=== PATIENT | female | born 1995 | race Caucasian/White ===

== ENCOUNTER 2018-07-19 14:16 | Observation (INO) ==
[2018-07-19 15:23] LABS: Amphetamine Screen,Urine Negative ng/mL (Cutoff=1000); Barbiturate Screen,Urine Negative ng/mL (Cutoff=200); Benzodiazepines Screen,Urine Negative ng/mL (Cutoff=200); Cannabinoid Screen,Urine Negative ng/mL (Cutoff = 50); Cocaine Screen,Urine Negative ng/mL (Cutoff= 300); Opiate Screen,Urine Negative ng/mL (Cutoff=300); Phencyclidine Screen,Urine Negative ng/mL (Cutoff=25)
--- NOTE | 2018-07-19 16:31 | Discharge Summary ---
Date of Encounter: 07/19/18 Time of Encounter: 16:30 - Discharge Diagnosis (1) 38 weeks gestation of Priority: Primary Status: Acute Comments: admitted for observation false labor (2) NST (non-stress test) reactive on surveillance Priority: Secondary Status: Acute Comments: FHR baseline 130 bpm moderate variability +15x15 accels no decels noted. Cat. 1 tracing - Discharge Medications Allergies/Adverse Reactions: 3 Allergy/AdvReac Type Severity Reaction Status Date / Time cephalexin Allergy Dizziness Verified 07/19/18 14:36 Data Procedures and tests throughout hospitalization: Laboratory Tests 07/19/18 14:23 Urine Opiates Screen Negative Ur Barbiturates Screen Negative Ur Phencyclidine Scrn Negative Ur Amphetamines Screen Negative U Benzodiazepines Scrn Negative Urine Cocaine Screen Negative U Marijuana (THC) Screen Negative Ur Drug Screen Interp See Below Labs on day of discharge: Labs from last 24 hours 07/19/18 14:23 Urine Opiates Screen Negative Ur Barbiturates Screen Negative Ur Phencyclidine Scrn Negative Ur Amphetamines Screen Negative U Benzodiazepines Scrn Negative Urine Cocaine Screen Negative U Marijuana (THC) Screen Negative Ur Drug Screen Interp See Below Date of admission: 07/19/18 14:16 Primary care physician: PCP NONE Discharging clinician: Nettie Machuca Anticipated date of discharge: 07/19/18 - Patient Status Disposition: Home, Self-Care Condition: Good Functional capacity at discharge: independent ambulation - Discharge Instructions Follow Up With: NONE,PCP [Primary Care Provider] - Manas Lowe DO [Partnered Physician] - - Diet and Activity Activity: increase activity as tolerated Diet: regular diet Hospital Course J[employer]ESE [employer]OR Hospital course: Patient is a 22 y/o at 38w1d presented to labor and delivery with complaints of contractions. Patient reports +FM. Denies LOF or VB. Time Attestation: Total time spent providing and/or coordinating discharge services: Time Spent: Less than 30 minutes Exam - Constitutional General appearance IM: A&O X 3, pleasant, answers questions appropriately - Respiratory Respiratory exam: Present: CTAB - Cardiovascular Cardiovascular exam IM: Present: RRR, +S1, +S2 - Uterus Position: At Umbilicus, Midline - Extremities Exam Extremities exam IM: Present: full ROM, normal capillary refill, normal inspection - Neurological Exam Neurological exam: alert, oriented X3, reflexes normal - VTE Reasons for not Prescribing Prophylaxis: Treatment not Indicated - Low risk for VTE
== END 2018-07-19 16:40 | disposition home or self-care (01) ==
LOC: 1NENULAB
PROVIDERS: ADMIT Advanced Practice Midwife; ATTEND Advanced Practice Midwife

== ENCOUNTER 2018-07-22 09:05 | Inpatient (IN) ==
[2018-07-22 10:17] LABS: Amphetamine Screen,Urine Negative ng/mL (Cutoff=1000); Barbiturate Screen,Urine Negative ng/mL (Cutoff=200); Benzodiazepines Screen,Urine Negative ng/mL (Cutoff=300); Cannabinoid Screen,Urine Negative ng/mL (Cutoff = 50); Cocaine Screen,Urine Negative ng/mL (Cutoff= 300)
[2018-07-22 10:18] LABS: Opiate Screen,Urine Negative ng/mL (Cutoff=300); Phencyclidine Screen,Urine Negative ng/mL (Cutoff=25)
[2018-07-22] MEDS ORDERED: Lidocaine 1% 20 ML MDV INFILT PRN (10:52)
[2018-07-22] MEDS ORDERED: *HR* Nalbuphine 10 MG/ML AMPUL IVP PRN (10:52)
[2018-07-22] MEDS ORDERED: Famotidine 20 MG/2 ML VIAL IVP PRN (10:52)
[2018-07-22] MEDS ORDERED: Ondansetron 4 MG/2 ML VIAL IVP PRN ×2 (10:52→17:55)
[2018-07-22] MEDS ORDERED: Metoclopramide 10 MG/2 ML VIAL IVP PRN (10:52)
[2018-07-22] MEDS ORDERED: Naloxone 0.4 MG/ML INJ IVP PRN ×2 (10:52→17:55)
[2018-07-22] MEDS ORDERED: miSOPROStol 25 MCG TABLET PO PRN (10:55)
[2018-07-22] MEDS ORDERED: Ringers Solution, Lactated 1,000 ML IVC SCH (11:00)
[2018-07-22 11:41] LABS: Basophils % 0.4 %; Eosinophils # 0.1 K/mcL (0.0-0.6); Eosinophils % 1.4 %; Hematocrit 34.1 % (35.3-44.9); Hemoglobin 10.9 g/dL (11.5-15.4); Immature Granulocytes % 0.5 % (0-4); Lymphocytes # 1.2 K/mcL (0.6-4.6); Lymphocytes % 15.2 %; Mean Corpuscular Hemoglobin 28.4 pg (28.0-33.3); Mean Corpuscular Volume 88.8 fL (83.0-100.0); Monocytes # 0.6 K/mcL (0.0-1.3); Neutrophils # 6.1 K/mcL (1.6-8.9); Platelet Count 169 K/mcL (140-400); Red Blood Count 3.84 M/mcL (3.82-4.97); Red Cell Distribution Width 14.5 % (11.5-14.5); Segmented Neutrophils % 75.5 %
--- NOTE | 2018-07-22 11:52 | OB/GYN History & Physical ---
Date of Encounter: 07/22/18 Time of Encounter: 11:52 Assessment and Plan (1) SROM (spontaneous rupture of membranes) Current visit: Yes Status: Acute Admit to labor and delivery Nubain and epidural as desired Cytotec 50 g by mouth Anticipate (2) 38 weeks gestation of Current visit: No Status: Acute History of Present Illness Chief complaint: Leaking of fluid HPI: Ms. Fishman is a 22 year old female 38+4 weeks gestation presents to triage with complaints of leaking of fluid. Patient states she had a gush of fluid yesterday approximately 1 PM, and had some contractions overnight but no further contractions or leaking overnight. Then had a very large gush of fluid this morning at 5 AM, reports good movement, denies vaginal bleeding. care with Dr. Lowe, complicated by homogenous MTHFR, and anemia, otherwise uncomplicated course. Past Med Surg Social Fam HX - Past Medical History Medical history: asthma Additional medical history: "blood thickening disorder" Psychiatric history: anxiety - Past Surgical History Additional surgical history: [place] teeth - Social History Smoking Status: Never smoker Smokeless Tobacco Status: No Alcohol use: none Drug use: none - Family History Mother History Unknown: Yes Living Status: Still Living Hx Family Cardiac Disorders: Yes Hx Family Medical Disorders: Yes (stroke, DVT) Obstetrical History - Pregnancies : 1 Para: 0 Term: 0 : 0 Ab's: 0 Livin Medications and Allergies Ferrous Sulfate [Iron] 325 mg PO 07/22/18 [History] Vits96/Iron Fum/Folic [ Tablet] 1 each PO 07/22/18 [History] 3 Allergy/AdvReac Type Severity Reaction Status Date / Time cephalexin Allergy Dizziness Verified 07/19/18 14:36 Exam - Constitutional Constitutional: well developed, well nourished, no acute distress, average body habitus - Neck Neck exam: full ROM - Lungs Respiratory exam: CTAB - Cardiovascular Cardiovascular exam: RRR - Abdomen Abdomen: Present: gravid, non tender - Extremities Extremities exam: normal capillary refill, normal inspection Results All other labs normal. - VTE Reasons for not Prescribing Prophylaxis: Treatment not Indicated - Low risk for VTE
[2018-07-22] MEDS: Clindamycin 900 MG/50 ML 900 MG/50 ML IV.SOLN IVPB SCH ×2 (15:09→23:40)
[2018-07-22] MEDS ORDERED: *HR* FentaNYL (PF) 100 MCG/2 ML VIAL EP ONE (17:55)
[2018-07-22] MEDS ORDERED: Bupivacaine-MPF 0.25% 10 ML VIAL EP ONE (17:55)
[2018-07-22] MEDS ORDERED: *HR* Ropivacaine/PF 0.2% 20 ML VIAL EP ONE (17:55)
[2018-07-22] MEDS ORDERED: EPHEDrine 50 MG/ML VIAL IVP PRN (17:55)
[2018-07-22] MEDS ORDERED: Epidural Premix (fent/bupiv) 110 ML EP SCH (18:00)
--- NOTE | 2018-07-22 18:00 | Anesthesia Evaluation PreOp ---
Date of Encounter: 07/22/18 Time of Encounter: 17:50 - Past History Planned Operation: RNEETTA Cardiac History: Denies any Significant Hx Pulmonary History: Denies Any Significant HX CONSTRUCTION DRIVER History: Denies Any Significant HX Other Medical History: Denies Any Significant HX Anesthesia History: No Prior Anesthetic Complications, Past Anesthesia (wisdom teeth) : Yes Alcohol Use: none Drug use: none Medications and Allergies Ferrous Sulfate [Iron] 325 mg PO 07/22/18 [History] Vits96/Iron Fum/Folic [ Tablet] 1 each PO 07/22/18 [History] 3 Allergy/AdvReac Type Severity Reaction Status Date / Time cephalexin Allergy Dizziness Verified 07/19/18 14:36 - Meds/Allergy Pre-op Review Medications Reviewed: Yes Allergies Reviewed: Yes Beta Blockers on Current Med List: No Anesthesia Results - Labs 07/22/18 10:54 Anesthesia Exam BP 111/75 P 69 T 98.3 R 16 Height: 5'4" Weight: 64.3kg NPO (# of Hours): 6 Pain Scale: 6
--- NOTE | 2018-07-22 18:10 | Anesthesia Evaluation PreOp ---
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 Significant HX Other Medical History: Denies Any Significant HX, Other (PIH) Anesthesia History: No Prior Anesthetic Complications, Past Anesthesia ( Appendectomy, wisdom teeth, right wrist surgery) : Yes Alcohol Use: none Drug use: none Medications and Allergies Ferrous Sulfate [Iron] 325 mg PO 07/22/18 [History] Vits96/Iron Fum/Folic [ Tablet] 1 each PO 07/22/18 [History] 3 Allergy/AdvReac Type Severity Reaction Status Date / Time cephalexin Allergy Dizziness Verified 07/19/18 14:36 - Meds/Allergy Pre-op Review Medications Reviewed: Yes Allergies Reviewed: Yes Beta Blockers on Current Med List: No Anesthesia Results - Labs 07/22/18 10:54 Anesthesia Exam BP 163/94 P 88 R 16 T 97.6 Height: 5'4" Weight: 64.3kg NPO (# of Hours): 4 Pain Scale: 4 Pain Scale Used: Numeric (1 - 10) - HEENT Pupil (Motor): Pupils equal Mallampati: II Teeth: Normal Oral Opening: Greater than 3 - COMPENSATOR WORKER LOC: Oriented COMPENSATOR WORKER Motor: Normal RUE, Normal LUE, Normal RLE, Normal LLE, Normal Face COMPENSATOR WORKER Sensory: Normal: RUE, LUE, RLE, LLE, Face - Cardiac Rhythm: Regular Murmur: None JVD: No Carotid Bruit: No - Pulmonary Breath Sounds: bilateral Clear, bilateral Rales, bilateral Rhonchi Respiratory Effort: Symmetrical Anesthesia Assess/Plan ASA Score: 2 Modified Branford Scale for Level of Consciousness: Cooperative, oriented, and tranquil Anesthetic Plan: Regional Autologous Blood: No Monitoring Plan: Standard Monitors Recovery Plan: Other
--- NOTE | 2018-07-22 18:33 | OB Labor Progress Note ---
Date of Encounter: 07/22/18 Time of Encounter: 18:31 Labor Progress Note - Subjective Subjective: Patient starting to feel more painful contractions - Cervix Cervix: Cervix unchanged per RN - Heart Tones Heart Tones: 125/moderate/positive accelerations/negative decelerations - Callahan Callahan: q5- - Plan Plan: This patient is feeling more contractions will recheck in 2 hours, if no cervical change will start Pitocin Nubain and epidural as desired Remains on clindamycin for prolonged rupture Anticipate
[2018-07-22] MEDS ORDERED: Lidocaine -MPF 2% 5 ML VIAL ONE (18:39)
[2018-07-22] MEDS ORDERED: *HR* FentaNYL (PF) 100 MCG/2 ML VIAL ONE (18:39)
--- NOTE | 2018-07-22 21:39 | Anesthesia Procedures ---
Date of Encounter: 07/22/18 Time of Encounter: 20:48 Procedures: Anesthesia - Epidural/Spinal Patient ID/Chart reviewed: Yes Patient examined: Yes OB Eval: Gestational age: 38.4 OB Eval: : 1 OB Eval: Hx Para: 0 OB Eval: Dilated at (cm): 3 OB Eval: Contractions: Non-stressed pattern Consent Obtained: Yes Supplemental Oxygen: None/Room Air Site Prep: Aseptic Technique, Sterile prep and drape, Povidone-Iodine 1% Patient position: upright Local Anesthetic: Lidocaine 1% Amount of Local Anesthetic used: 3 Touhy Needle Gauge: 18 Touhy Needle Depth (cm): 4 Catheter Depth at Skin (cm): 14 Test Dose (1.5% Lido + Epi): Volume given (mls): 3 Test Dose Result: Negative Loading Dose: Fentanyl (mcg): 100 Loading Dose: Other: Ropivicaine 0.2% 8ml Loading Dose Administered: Thru Catheter Infusion Med: 0.125% Bupivacaine w/ 2 mcg/ml Fentanyl Infusion Rate (mls/hr): [address]: Tegaderm, Tape Interspace Used: L4-L5 Loss of Resistance (HERNANDEZ): Yes Blood: No CSF: No Paresthesia: No Procedure: RENETTA placed 1st pass in upright position without any immediate noted complications. VSS and FHT stable throughout. Vitals + FHT's: 2048 BP 128/80 P82 R 18 2113 BP 108 73 P 69 R 16 FHT 140s
--- NOTE | 2018-07-22 23:40 | OB Labor Progress Note ---
Date of Encounter: 07/22/18 Time of Encounter: 23:35 Labor Progress Note - Subjective Subjective: Pt comfortable with epidural - Cervix Cervix: 3-4/90/-1 - Heart Tones Heart Tones: 115/minimal/-accels/-decels - Killbuck Killbuck: 2-3 - Interventions Interventions: forebag ruptured for moderate amount clear fluid - Plan Plan: Continue current management frequent repositioning Clinda for prolonged rupture Anticipate
[2018-07-23] MEDS ORDERED: Oxytocin 20 units/ LR 1000 mL 20 UNIT/1,000 ML BAG IVC ONE (02:14)
--- NOTE | 2018-07-23 03:37 | OB/GYN Procedure Note ---
Delivery - Delivery Date: 07/23/18 Provider: Tiara Cisneros Intrapartum events: none Delivery induction: none Delivery augmentation: pitocin Delivery monitor: external FHT, external uterine Anesthesia: epidural Quantitated Blood Loss: 1,000 - (s) A Infant Delivery Date: 07/23/18 Delivery Time: 02:49 Presentation: vertex Position: OA Route of delivery: Gender: Male Viability: Viable Pounds: 7 Ounces: 13 Weight Gram: 3.52 kg at 1 minute: 9 at 5 mins: 9 Shoulder Dystocia: not encountered Specimens collected: cord blood Placenta: spontaneous Cord: 3 umbilical vessels, other (body cord) - Repair Episiotomy: none Laceration Description: Labial (through clitoral vo) - Complications Delivery complications: none Delivery comments: Admitted with spontaneous rupture membranes at augmented with Pitocin, progressed to complete, maternal bearing down efforts to of liveborn male. Vertex delivered OA, shoulders and body easily followed, body cord noted around shoulder and manually reduced at delivery, no shoulder dystocia encountered. Placenta delivered spontaneously (Umanzor) intact and complete upon inspection. Pitocin started per policy, initial uterine atony noted, bimanual uterine massage and Methergine given IM. Right labial laceration noted going through clitoral vo, Dr. Martinez in to evaluate laceration, agrees with remaining unrepaired and letting heal by third intention. EBL 1000 - Disposition Mom disposition: stable in LDR disposition: stable in LDR
[2018-07-23] MEDS ORDERED: Lanolin 28 GM TUBE TP PRN (05:50)
[2018-07-23] MEDS ORDERED: Acetaminophen 325 MG TABLET PO PRN (05:50)
[2018-07-23] MEDS ORDERED: Benzocaine/Menthol 56 GM AEROSOL SPRAY TP PRN (05:50)
[2018-07-23] MEDS ORDERED: Rho Immune Globulin 1,500 UNIT SYRINGE IM PRN (05:50)
[2018-07-23] MEDS ORDERED: Oxytocin 20 units/ LR 1000 mL 20 UNIT/1,000 ML BAG IVC SCH (05:50)
[2018-07-23] MEDS ORDERED: Methylergonovine 0.2 MG/ML AMPUL IM ONE (08:14)
[2018-07-23] MEDS: Ibuprofen 600 MG TABLET PO PRN ×2 (08:19→20:15)
[2018-07-23] MEDS: Prenatal Vit/FA 1 EACH TABLET PO SCH (08:19)
[2018-07-23 12:30] LABS: Basophils % 0.1 %; Eosinophils % 0.1 %; Hematocrit 25.8 % (35.3-44.9); Immature Granulocytes % 0.5 % (0-4); Lymphocytes # 0.6 K/mcL (0.6-4.6); Lymphocytes % 4.3 %; Mean Corpuscular HGB Conc 32.6 g/dL (31.6-35.5); Mean Corpuscular Hemoglobin 28.8 pg (28.0-33.3); Mean Corpuscular Volume 88.4 fL (83.0-100.0); Mean Platelet Volume 11.5 fL (9.4-12.4); Monocytes % 7.2 %; Neutrophils # 12.4 K/mcL (1.6-8.9); Platelet Count 148 K/mcL (140-400); Red Blood Count 2.92 M/mcL (3.82-4.97); Red Cell Distribution Width 14.3 % (11.5-14.5); Segmented Neutrophils % 87.8 %
[2018-07-23 12:35] LABS: Hemoglobin 8.4 g/dL (11.5-15.4)
[2018-07-24 05:58] LABS: Basophils % 0.3 %; Eosinophils # 0.2 K/mcL (0.0-0.6); Hematocrit 23.3 % (35.3-44.9); Hemoglobin 7.4 g/dL (11.5-15.4); Immature Granulocytes % 0.7 % (0-4); Lymphocytes % 17.8 %; Mean Corpuscular HGB Conc 31.8 g/dL (31.6-35.5); Mean Corpuscular Hemoglobin 28.6 pg (28.0-33.3); Mean Platelet Volume 11.2 fL (9.4-12.4); Neutrophils # 7.8 K/mcL (1.6-8.9); Platelet Count 176 K/mcL (140-400); Red Blood Count 2.59 M/mcL (3.82-4.97); Red Cell Distribution Width 14.6 % (11.5-14.5); Segmented Neutrophils % 70.2 %
[2018-07-24] MEDS: Ibuprofen 600 MG TABLET PO PRN (08:38)
[2018-07-24] MEDS: Prenatal Vit/FA 1 EACH TABLET PO SCH (08:38)
[2018-07-24 08:59] VITALS: BP 108/73
--- NOTE | 2018-07-24 10:38 | Discharge Summary ---
Date of Encounter: 07/24/18 Time of Encounter: 10:33 - Discharge Diagnosis (1) Vaginal delivery Priority: Primary Status: Acute Comments: Feeling well Pain well controlled with by mouth pain meds Tolerating regular diet Voiding independently Lochia light Passing flatus, no BM yet Vital signs stable Ambulating independently Discharge home today (2) Breast feeding status of mother Priority: Secondary Status: Acute Comments: Community resources provided (3) anemia Priority: Secondary Status: Acute Comments: Continue iron supplementation twice daily for 3 months - Discharge Medications Prescriptions: Ibuprofen [Motrin] 600 mg PO Q6HR PRN #30 tablet PRN Reason: Cramping Breast Pump [BREAST PUMP] 1 each .ROUTE AD #1 each Docusate [Colace] 100 mg PO BID #60 capsule Ferrous Sulfate 325 mg PO BID #60 tablet Home Medications: Ferrous Sulfate [Iron] 325 mg PO 07/22/18 [History] Vits96/Iron Fum/Folic [ Tablet] 1 each PO 07/22/18 [History] Acetaminophen [Tylenol] 650 mg PO Q6HR PRN tablet 07/24/18 [Rx] Benzocaine/Menthol [place] [Dermoplast [place]] 1 appl TP QID PRN aerosol 07/24/18 [Rx] Breast Pump [BREAST PUMP] 1 each .ROUTE AD #1 each 07/24/18 [Rx] Docusate [Colace] 100 mg PO BID #60 capsule 07/24/18 [Rx] Ferrous Sulfate 325 mg PO BID #60 tablet 07/24/18 [Rx] Ibuprofen [Motrin] 600 mg PO Q6HR PRN #30 tablet 07/24/18 [Rx] Lanolin 1 appl TP QID PRN tube 07/24/18 [Rx] Allergies/Adverse Reactions: 3 Allergy/AdvReac Type Severity Reaction Status Date / Time cephalexin Allergy Dizziness Verified 07/19/18 14:36 Data Procedures and tests throughout hospitalization: Laboratory Tests 07/22/18 07/22/18 07/23/18 08:26 10:54 03:30 WBC 8.1 RBC 3.84 Hgb 10.9 L Hct 34.1 L MCV 88.8 MCH 28.4 MCHC 32.0 RDW 14.5 Plt Count 169 MPV 11.0 Immature Gran % 0.5 Seg Neutrophils % 75.5 Lymphocytes % 15.2 Monocytes % 7.0 Eosinophils % 1.4 Basophils % 0.4 Neutrophils # 6.1 Lymphocytes # 1.2 Monocytes # 0.6 Eosinophils # 0.1 Basophils # 0.0 Urine Opiates Screen Negative Ur Barbiturates Screen Negative Ur Phencyclidine Scrn Negative Ur Amphetamines Screen Negative U Benzodiazepines Scrn Negative Urine Cocaine Screen Negative U Marijuana (THC) Screen Negative Ur Drug Screen Interp See Below Screen NEGATIVE Baby's Blood Type AB RH POSITIVE Mother's Blood Type B RH NEGATIVE Rhogam Indicated YES Rhogam Req for Mother 1 07/23/18 07/24/18 12:01 05:30 WBC 14.1 H D 11.2 H RBC 2.92 L 2.59 L Hgb 8.4 L D 7.4 L Hct 25.8 L 23.3 L MCV 88.4 90.0 MCH 28.8 28.6 MCHC 32.6 31.8 RDW 14.3 14.6 H Plt Count 148 176 MPV 11.5 11.2 Immature Gran % 0.5 0.7 Seg Neutrophils % 87.8 70.2 Lymphocytes % 4.3 17.8 Monocytes % 7.2 9.0 Eosinophils % 0.1 2.0 Basophils % 0.1 0.3 Neutrophils # 12.4 H 7.8 Lymphocytes # 0.6 2.0 Monocytes # 1.0 1.0 Eosinophils # 0.0 0.2 Basophils # 0.0 0.0 Urine Opiates Screen Ur Barbiturates Screen Ur Phencyclidine Scrn Ur Amphetamines Screen U Benzodiazepines Scrn Urine Cocaine Screen U Marijuana (THC) Screen Ur Drug Screen Interp Screen Baby's Blood Type Mother's Blood Type Rhogam Indicated Rhogam Req for Mother Labs on day of discharge: Labs from last 24 hours 07/24/18 07/23/18 05:30 12:01 WBC 11.2 H 14.1 H D RBC 2.59 L 2.92 L Hgb 7.4 L 8.4 L D Hct 23.3 L 25.8 L MCV 90.0 88.4 MCH 28.6 28.8 MCHC 31.8 32.6 RDW 14.6 H 14.3 Plt Count 176 148 MPV 11.2 11.5 Immature Gran % 0.7 0.5 Seg Neutrophils % 70.2 87.8 Lymphocytes % 17.8 4.3 Monocytes % 9.0 7.2 Eosinophils % 2.0 0.1 Basophils % 0.3 0.1 Neutrophils # 7.8 12.4 H Lymphocytes # 2.0 0.6 Monocytes # 1.0 1.0 Eosinophils # 0.2 0.0 Basophils # 0.0 0.0 Date of admission: 07/22/18 11:08 Primary care physician: Jasmyn Peguero CNP Consults: 07/23/18 05:50 Consult to Adult Secondary Education Instructor [CONS] Routine Comment: Vaginal delivery, consult needed Discharging clinician: Elizabeth Barnes Anticipated date of discharge: 07/24/18 - Patient Status Disposition: Home, Self-Care Condition: Good Functional capacity at discharge: independent ambulation Overall status at discharge: patient is progressing back to baseline - Discharge Instructions Instructions: Movement (DC) Follow Up With: Jasmyn Peguero CNP [Primary Care Provider] - Manas Lowe DO [Partnered Physician] - Additional Instructions: LABOR AND DELIVERY DISCHARGE INSTRUCTIONS Signs and Symptoms to be Reported to your Doctor Immediately: * Sudden gush, continuous or intermittent lead of fluid from vagina (note the time of gush and color of fluid) * Onset of bright red vaginal bleeding with or without pain (if you had a vaginal exam during this visit you may notice some dark red spotting. This is normal.) * Contractions that are 5 minutes apart (from the beginning of one contraction to the beginning of the next) and last 45-60 seonds; contractions that you can no longer walk, talk or laugh through. * A change in the baby's activity. This could be an increase or decrease in activity. * Severe headache which does not go away with tylenol. * Sudden swelling in the face, hands, arms and/or legs. * Upper abdominal pain - sometimes associated with heartburn or nausea and is not relieved by Maalox, Mylanta or Tums. * Kick Counts __ One hour after a meal, lay down on one side in a quiet place. Count the number of time the baby moves during an hour. If less than 6 movements, notify your physician Diet: *Force fluids, 8 to 10 tall glasses of fluid per day - may include popsicles and jello *Limit caffeine - this includes chocolate, coffee, tea, any soft drink containing such as all rosita, Tirso Yellow and Mountain Dew - Diet and Activity Activity: increase activity as tolerated Diet: regular diet Hospital Course Procedures: Reason for admission: rupture of membranes, IUP at term Delivery: Episiotomy: none Laceration: other (labial) Other procedures: none complications: none Discharge diagnosis: IUP at term delivered baby: male Hospital course: Patient was admitted status post spontaneous rupture of membranes. Her labor progressed without incident and she delivered a viable male infant. course has been uncomplicated. She will be discharged home today. Time Attestation: Total time spent providing and/or coordinating discharge services: Time Spent: Less than 30 minutes Exam - Constitutional Vitals: Temp Pulse Resp BP Pulse Ox 98.1 F 88 14 108/73 98 07/24/18 08:58 07/24/18 08:58 07/24/18 08:58 07/24/18 08:58 07/24/18 08:58 General appearance IM: A&O X 3 - Respiratory Respiratory exam: Present: CTAB - Cardiovascular Cardiovascular exam IM: Present: RRR, +S1, +S2 - GI/Abdominal GI/Abdominal exam IM: normal bowel sounds, no peritoneal signs - Rectal Rectal exam: deferred - Uterine Tone: Firm Uterus Position: 1 Finger Below Umbilicus, Midline - Extremities Exam Extremities exam IM: Present: normal capillary refill, normal inspection, radial pulses palpable and symmetrical - Neurological Exam Neurological exam: alert, CN II-XII intact, normal gait, oriented X3, reflexes normal, no focal deficits, strengths equal and symetr throughout - Psychiatric Additional comments: Patient reports history of anxiety and depression. Lengthy discussion was had regarding signs and symptoms of depression with patient and mother. They both verbalize understanding of when to seek help. - Skin Additional comments: Breasts: Nipples intact without erythema; soft, nontender
== END 2018-07-24 16:45 | disposition home or self-care (01) | DRG 807 ==
LOC: 1NENULAB → 1NENUOBS 07-23 05:36
PROVIDERS: ADMIT Advanced Practice Midwife; ATTEND Advanced Practice Midwife

== ENCOUNTER → 2021-01-23 11:30 | Observation (INO) ==
[2021-01-23 10:46] LABS: Bacteria,Urine Few per hpf (None-Few); Bilirubin,Urine Negative (Negative); Blood,Urine Negative (Negative); Clarity,Urine Turbid (Clear); Color,Urine Light-Yellow (Yellow); Glucose,Urine (UA) Normal (Normal); Ketones,Urine Negative (Negative); Leukocyte Esterase,Urine Small (Negative); Mucus,Urine Few per lpf (None-Few); Nitrite,Urine Negative (Negative); PH,Urine 7.5 pH Units (5.0-8.0); Protein,Urine Negative (Neg-Trace); RBC,Urine 0-3 per hpf (0-3); Renal Epithelial Cells,Urine Few per hpf (None-Few); Specific Gravity,Urine 1.009 (1.010-1.025); Squamous Epithelial Cell,Urine Moderate per hpf (None-Few); Transitional Epi Cells,Urine Few per hpf (None-Few); Urobilinogen,Urine Normal (Normal)
[2021-01-23 13:24] LABS: Candida DNA DETECTED (Not Detect); Gardnerella DNA DETECTED (Not Detect); Trichomonas DNA Not Detected (Not Detect)
== END | disposition home or self-care (01) ==
LOC: 1NENULAB
PROVIDERS: ADMIT Advanced Practice Midwife; ATTEND Advanced Practice Midwife

== ENCOUNTER → 2021-02-12 18:46 | Observation (INO) | END | disposition home or self-care (01) | LOC: 1NENULAB | PROVIDERS: ADMIT Advanced Practice Midwife; ATTEND Advanced Practice Midwife ==

== ENCOUNTER 2021-02-17 00:27 | Inpatient (IN) ==
[~2021-02-17 00:27] MED LIST: *HR* Nalbuphine 10 MG/ML AMPUL IV PRN; Famotidine 20 MG/2 ML VIAL IVP PRN; Lidocaine 1% 20 ML MDV INFILT PRN; Metoclopramide 10 MG/2 ML VIAL IVP PRN; Naloxone 0.4 MG/ML INJ IVP PRN; Ondansetron 4 MG/2 ML VIAL IVP PRN; Ringers Solution, Lactated 1,000 ML ONE
[2021-02-17] MEDS ORDERED: Ringers Solution, Lactated 1,000 ML IVC SCH (00:30)
[2021-02-17 00:48] LABS: Basophils % 0.3 %; Eosinophils # 0.2 K/mcL (0.0-0.6); Eosinophils % 1.9 %; Hematocrit 29.4 % (35.3-44.9); Hemoglobin 8.9 g/dL (11.5-15.4); Immature Granulocytes % 1.2 % (0-4); Lymphocytes # 2.3 K/mcL (0.6-4.6); Lymphocytes % 18.2 %; Mean Corpuscular HGB Conc 30.3 g/dL (31.6-35.5); Mean Corpuscular Hemoglobin 24.5 pg (28.0-33.3); Mean Corpuscular Volume 80.8 fL (83.0-100.0); Mean Platelet Volume 11.5 fL (9.4-12.4); Monocytes % 8.4 %; Neutrophils # 8.7 K/mcL (1.6-8.9); Nucleated Red Blood Cells 0.2 /100 WBC (0); Platelet Count 202 K/mcL (140-400); Red Blood Count 3.64 M/mcL (3.82-4.97); Red Cell Distribution Width 13.7 % (11.5-14.5); White Blood Count 12.4 K/mcL (4.3-11.1)
[2021-02-17] MEDS ORDERED: Epidural Premix (fent/bupiv) 110 ML EP SCH (01:00)
[2021-02-17] MEDS ORDERED: *HR* FentaNYL (PF) 100 MCG/2 ML VIAL EP ONE (01:00)
[2021-02-17] MEDS ORDERED: EPHEDrine 50 MG/ML VIAL IVP PRN (01:00)
[2021-02-17] MEDS ORDERED: Ropivacaine/PF 0.2% 20 ML VIAL EP ONE (01:00)
[2021-02-17] MEDS ORDERED: Ropivacaine/PF 0.2% 20 ML VIAL ONE (01:04)
[2021-02-17] MEDS ORDERED: *HR* FentaNYL (PF) 100 MCG/2 ML VIAL ONE (01:04)
[2021-02-17] MEDS ORDERED: Epidural Premix (fent/bupiv) 110 ML EP ONE (01:06)
[2021-02-17 01:40] LABS: Adenovirus Not Detected (Not Detect); Bordetella Pertussis Not Detected (Not Detect); Chlamydophila pneumoniae Not Detected (Not Detect); Coronavirus 229E Not Detected (Not Detect); Coronavirus HKU1 Not Detected (Not Detect); Coronavirus NL63 Not Detected (Not Detect); Coronavirus OC43 Not Detected (Not Detect); Human Metapneumovirus Not Detected (Not Detect); Human Rhinovirus/Enterovirus Not Detected (Not Detect); Influenza A Subtype 2009 H1 Not Detected (Not Detect); Influenza B Not Detected (Not Detect); Mycoplasma pneumoniae Not Detected (Not Detect); Parainfluenza Virus 1 Not Detected (Not Detect); Parainfluenza Virus 2 Not Detected (Not Detect); Parainfluenza Virus 3 Not Detected (Not Detect); Parainfluenza Virus 4 Not Detected (Not Detect); Respiratory Syncytial Virus Not Detected (Not Detect); SARS-CoV-2 Not Detected (Not Detect)
[2021-02-17 01:50] LABS: Amphetamine Screen,Urine Negative ng/mL (Cutoff=1000); Barbiturate Screen,Urine Negative ng/mL (Cutoff=200); Benzodiazepines Screen,Urine Negative ng/mL (Cutoff=200); Cannabinoid Screen,Urine Negative ng/mL (Cutoff = 50); Cocaine Screen,Urine Negative ng/mL (Cutoff= 300); Opiate Screen,Urine Negative ng/mL (Cutoff=300); Phencyclidine Screen,Urine Negative ng/mL (Cutoff=25)
[2021-02-17] MEDS ORDERED: Oxytocin 20 units/ LR 1000 mL 20 UNIT/1,000 ML BAG IVC SCH ×2 (02:15→06:51)
[2021-02-17] MEDS ORDERED: Lanolin 7 G OINT...G. TP PRN (06:51)
[2021-02-17] MEDS ORDERED: Oxytocin 20 units/ LR 1000 mL 20 UNIT/1,000 ML BAG IVC ONE (06:51)
[2021-02-17] MEDS ORDERED: Acetaminophen 325 MG TABLET PO PRN (06:51)
[2021-02-17] MEDS ORDERED: Benzocaine/Menthol 56 GM AEROSOL SPRAY TP PRN (06:51)
[2021-02-17] MEDS ORDERED: Rho Immune Globulin 1,500 UNIT SYRINGE IM PRN (06:51)
[2021-02-17] MEDS ORDERED: Prenatal Vit/FA 1 EACH TABLET PO SCH (09:00)
[2021-02-17] MEDS: Ibuprofen 600 MG TABLET PO PRN ×2 (10:51→19:00)
[2021-02-18] MEDS: Ibuprofen 600 MG TABLET PO PRN (05:30)
[2021-02-18 05:51] LABS: Basophils # 0.1 K/mcL (0.0-0.2); Basophils % 0.5 %; Eosinophils # 0.3 K/mcL (0.0-0.6); Hematocrit 27.4 % (35.3-44.9); Hemoglobin 8.4 g/dL (11.5-15.4); Immature Granulocytes % 0.6 % (0-4); Lymphocytes # 2.2 K/mcL (0.6-4.6); Lymphocytes % 22.6 %; Mean Corpuscular HGB Conc 30.7 g/dL (31.6-35.5); Mean Corpuscular Hemoglobin 25.5 pg (28.0-33.3); Mean Platelet Volume 11.6 fL (9.4-12.4); Monocytes # 0.8 K/mcL (0.0-1.3); Monocytes % 8.2 %; Neutrophils # 6.4 K/mcL (1.6-8.9); Platelet Count 154 K/mcL (140-400); Red Cell Distribution Width 13.9 % (11.5-14.5); Segmented Neutrophils % 65.1 %; White Blood Count 9.8 K/mcL (4.3-11.1)
[2021-02-18 07:53] VITALS: BP 103/65
== END 2021-02-18 11:51 | disposition home or self-care (01) | DRG 560 ==
LOC: 1NENULAB → 1NENUOBS 10:10
PROVIDERS: ADMIT Advanced Practice Midwife; ATTEND Advanced Practice Midwife